=== PATIENT | male | born 1995 | race Two or more races ===

== ENCOUNTER → 2023-12-16 | Emergency (ER) | payer SELFPAY ==
[~2023-12-16] MED LIST: ASPIRIN 81 MG CHEWABLE TABLET ONE; ATROPINE SULF 1 MG/10 ML SYR IV ONE; CLOPIDOGREL 75 MG TABLET ONE; FENTANYL CITR 100 MCG/2 ML ONE; HEPA 1000U/500MLS 0 UNIT/0 ML BAG IV ONE; HEPARIN 10,000 UNIT/10 ML VIAL IV ONE; HEPARIN 5000 UNIT/ML 1 ML VIAL ONE; HEPARIN/D5W 0 UNIT/0 ML BAG IV ONE; LIDOCAINE 1% 20 ML MDV ONE; MIDAZOLAM HCL 2 MG/2 ML INJ ONE; NA CHLORIDE 0.9% 0 ML ONE; NITROGLYCERIN/D5W 50 MG/250 ML BTL IV ONE; TICAGRELOR 90 MG TABLET PO ONE
[2023-12-16 11:24] LABS: Absolute Eosinophils 0.1 K/uL (0-0.5); Absolute Lymphocytes (CBC) 1.9 K/uL (0.7-4.9); Absolute Neutrophil 6.5 K/uL (1.8-8.0); Basophils % 0.3 % (0-1.3); Eosinophils % 1.6 % (0-4.4); Hematocrit 51.8 % (39.6-49.0); Hemoglobin 17.4 g/dL (13.6-17.9); Lymphocytes % 19.7 % (15.3-44.8); MCH 29.9 pg (27.0-35.0); MCHC 33.7 g/dL (32.0-36.0); MCV 88.9 fL (80-100); MPV 9.6 fL (7.6-11.3); Monocytes % 10.2 % (3.3-12.3); Neutrophils % 68.2 % (41.7-73.7); Nucleated Red Blood Cells % 0.1 % (0-0); Platelets 356 thou/uL (152-406); RBC Red Blood Cell Count 5.83 M/uL (4.33-5.43); Red Cell Distribution Width 12.9 % (12.1-15.2)
--- NOTE | 2023-12-16 11:29 | ER ---
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 Coronavirus screen: At this time, the client does not indicate any symptoms associated with coronavirus-19. Ebola Screen: No symptoms or risks identified at this time. Initial Sepsis Screen: Does the patient meet any 2 criteria? No. Patient's initial sepsis screen is negative. Does the patient have a suspected source of infection? No. Patient's initial sepsis screen is negative. Risk Assessment: Do you want to hurt yourself or someone else? Patient reports no desire to harm self or others. Onset of symptoms was December 15, 2023. 10:59 Method Of Arrival: Ambulatory hb 10:59 Acuity: SAURABH 3 hb Historical: - Allergies: 11:01 No Known Allergies; hb - Home Meds: 11: None [Active]; hb - PMHx: 11:01 Asthma; hb - PSHx: 11:01 None; hb - Immunization history:: Adult Immunizations up to date. - Infectious Disease History:: Denies. - Social history:: Smoking status: Patient reports the use of cigarette tobacco products, denies chronic smoking, but will smoke occasionally. Screenin:[address] [facility] ED Fall Risk Assessment (Adult) History of falling in the last 3 months, iw including since admission No falls in past 3 months (0 pts) Confusion or Disorientation No (0 pts) Intoxicated or Sedated No (0 pts) Impaired Gait No (0 pts) Mobility Assist Device Used No (0 pt) Altered Elimination No (0 pt) Score/Fall Risk Level 0 - 2 = Low Risk Oriented to surroundings, Maintained a safe environment. Abuse screen: Denies threats or abuse. Nutritional screening: No deficits noted. Tuberculosis screening: No symptoms or risk factors identified. Assessment: 11:21 General: Appears in no apparent distress. Behavior is calm, cooperative. Pain: iw Complains of pain in chest Pain does not radiate. Pain currently is 8 out of 10 on a pain scale. Pain began 1 day ago. Is continuous. Neuro: Level of Consciousness is awake, alert, obeys commands, Oriented to person, place, time, situation, Moves all extremities. Full function. Cardiovascular: Patient's skin is warm and dry. Respiratory: Respiratory effort is even, unlabored, Respiratory pattern is regular, symmetrical. Derm: Skin is intact, is healthy with good turgor. Musculoskeletal: Capillary refill < 3 seconds. 11:25 Reassessment: catheterization laboratory technician RN at bedside , will hold heparin. iw Vital Signs: 10:59 BP 143 / 103; Pulse 87; Resp 16; Temp 97.8(TE); Pulse Ox 100% on R/A; Weight 72.57 kg; hb Height 5 ft. 5 in. ; Pain 5/10; 11:25 BP 139 / 101; Pulse 84; Resp 16; Pulse Ox 99% on R/A; Pain 8/10; iw 10:59 Body Mass Index 26.63 (72.57 kg, 165.1 cm) hb 10:59 Pain Scale: Adult hb 11:25 Pain Scale: Adult iw ED Course: 10:52 Patient arrived in ED. mg5 10:54 Guillermo Sumner DO is Attending Physician. ms3 11:01 Triage completed. hb 11:01 Arm band placed on. hb 11:04 Carrie Amos, RN is Primary Nurse. iw 11:16 Initial lab(s) drawn, by me, sent to lab. Inserted saline lock: 18 gauge in right iw antecubital area, using aseptic technique. Blood collected. Flushed with 10 mL NS. 11:20 Inserted saline lock: 18 gauge in left antecubital area, using aseptic technique. ss 11:25 Patient has correct armband on for positive identification. Placed in gown. Provided iw Education on: need for catheterization laboratory technician. 11:27 Kvng Caraballo MD is Hospitalizing Provider. ms3 11:30 No provider procedures requiring assistance completed. Patient admitted, IV remains in iw place. Administered Medications: 11:20 Drug: Aspirin PO Chewable Tablet 324 mg PO once; 81 mg tablets x 4 Route: PO; iw 11:31 Follow up: Response: No adverse reaction; Medication Administered at Departure iw 11:23 Drug: Brilinta 180 mg PO once Route: PO; 11:30 Follow up: Response: Medication Administered at Departure iw 11: Not Given (pt to cath labb): Heparin (LA-Bolus No thrombolytic) - [id number] units/kg iw IVP once; Max 5000 units Medication: 11:30 VIS not applicable for this client. iw Outcome: : Decision to Hospitalize by Provider. ms3 11:29 Admitted to Optical Technician accompanied by nurse, via stretcher, on monitor, with chart, iw : Condition: stable :29 Instructed on the need for admit, Demonstrated understanding of instructions, : Patient left the ED. iw Signatures: Carrie Amos, RN RN Clementina Duron RN RN Malu Hammond, RN RN Guillermo Sumner, DO ms3 Rose Lombardo mg5
--- NOTE | 2023-12-16 11:29 | EDPHYS ---
Physician Documentation [facility] Name: Andrae Alan Age: 28 yrs Sex: Male : 1995 Arrival Date: 12/16/2023 Time: 10:46 Bed 7 Private MD: ED Physician Guillermo Sumner HPI: 12/15 11:04 This 28 yrs old [place] Male presents to ER via Ambulatory with complaints of Heat ms3 Exposure. 11:04 28-year-old male with past medical history of asthma presents to the emergency ms3 department for lightheadedness, chest pain, body cramps, nausea, vomiting. Patient states he has had chest pain that is throbbing since yesterday. 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 He denies any alleviating or inciting factors. Historical: - Allergies: 11: No Known Allergies; hb - Home Meds: 11: None [Active]; hb - PMHx: 11: Asthma; hb - PSHx: 11:01 None; hb - Immunization history:: Adult Immunizations up to date. - Infectious Disease History:: Denies. - Social history:: Smoking status: Patient reports the use of cigarette tobacco products, denies chronic smoking, but will smoke occasionally. ROS: 11:04 Constitutional: Negative for fever, and chills. Neck: Negative for injury, pain, and ms3 swelling, Respiratory: Negative for shortness of breath, cough, wheezing, and pleuritic chest pain, 11:04 Abdomen/GI: Negative for abdominal pain, nausea, vomiting, diarrhea, and constipation, MS/Extremity: Negative for injury and deformity, Skin: Negative for injury, rash, and discoloration, 11:04 Cardiovascular: Positive for chest pain, Exam: 11:04 Constitutional: This is a well developed, well nourished patient who is awake, alert, ms3 and in no acute distress. Head/Face: Normocephalic, atraumatic. Chest/axilla: Normal chest wall appearance and motion. Nontender with no deformity. Cardiovascular: Regular rate and rhythm with a normal S1 and S2. No gallops, murmurs, or rubs. Normal PMI, no JVD. No pulse deficits. Respiratory: Lungs have equal breath sounds bilaterally, clear to auscultation and percussion. No rales, rhonchi or wheezes noted. No increased work of breathing, no retractions or nasal flaring. Abdomen/GI: Soft, non-tender, with normal bowel sounds. No distension or tympany. No guarding or rebound. No evidence of tenderness throughout. Skin: Warm, dry with normal turgor. Normal color with no rashes, no lesions, and no evidence of cellulitis. MS/ Extremity: Pulses equal, no cyanosis. Neurovascular intact. Full, normal range of motion. 11:22 ECG was reviewed by the Attending Physician. ms3 Vital Signs: 10:59 BP 143 / 103; Pulse 87; Resp 16; Temp 97.8(TE); Pulse Ox 100% on R/A; Weight 72.57 kg; hb Height 5 ft. 5 in. ; Pain 5/10; 11:25 BP 139 / 101; Pulse 84; Resp 16; Pulse Ox 99% on R/A; Pain 8/10; iw 10:59 Body Mass Index 26.63 (72.57 kg, 165.1 cm) hb 10:59 Pain Scale: Adult hb 11:25 Pain Scale: Adult iw MDM: 11:01 Patient medically screened. ms3 11:04 Differential Diagnosis PA vs Heat Exhaustion vs Rhabdo. ms3 11:18 ED course: Discussed case with Dr Manzo and he would like patient to go to catheterization laboratory technician. ms3 11:22 Data reviewed: vital signs, nurses notes, EKG, and as a result, I will admit patient. ms3 Consideration of Admission/Observation Patient was admitted/placed on observation. Management of patient was discussed with the following: Hospitalist: OBI Hill with Dr Caraballo. Vice President Corporate Communications: Discussed case with Dr Manzo. He would like 180 mg Brilinta, Heparin Bolus and 324 mg ASA. . I considered the following discharge prescriptions or medication management in the emergency department Medications were administered in the Emergency Department. See MAR. Independent interpretation of the following test(s) in the Emergency Department EKG: See my EKG interpretation above. Counseling: I had a detailed discussion with the patient and/or guardian regarding the historical points, exam findings, and any diagnostic results supporting the discharge/admit diagnosis, the need for further work-up and treatment in the hospital. 12:40 ED course: Called patient because he left AMA from the catheterization laboratory technician. Informed patient of ms3 BRANT and recommended hospitalization with patient. Recommended oral hydration to patient with electrolyte containing substances as well as water. Patient declines and states he will go to [place].. 12/15 11:02 Order name: Basic Metabolic Panel; Complete Time: 12:36 ms3 12/15 11:02 Order name: CBC with Diff; Complete Time: 11:35 ms3 12/15 11:02 Order name: Troponin HS; Complete Time: 12:36 ms3 12/15 11:02 Order name: CK; Complete Time: 12:36 ms3 12/15 11:19 Order name: UDS sp3 10 11:20 Order name: PT-INR; Complete Time: 12:36 ss 12/15 11:20 Order name: Ptt, Activated; Complete Time: 12:36 ss 12/15 11:02 Order name: Cardiac monitoring; Complete Time: 11:10 ms3 12/15 11:02 Order name: EKG - Nurse/Tech; Complete Time: 11:10 ms3 12/15 11:02 Order name: IV Saline Lock; Complete Time: 11:16 ms3 12/15 11:02 Order name: Labs collected and sent; Complete Time: 11:19 ms3 12/15 11:02 Order name: O2 Per Protocol; Complete Time: 11:16 ms3 12/15 11:02 Order name: O2 Sat Monitoring; Complete Time: 11:16 ms3 EC:22 Rate is 83 beats/min. Rhythm is regular. QRS [place] is Normal. CA interval is normal. QRS ms3 interval is normal. QT interval is normal. ST Segment is elevated in leads V1, V2, V3. Clinical impression: Septal PA - acute. Interpreted by me. Reviewed by me. Administered Medications: 11:20 Drug: Aspirin PO Chewable Tablet 324 mg PO once; 81 mg tablets x 4 Route: PO; iw 11:31 Follow up: Response: No adverse reaction; Medication Administered at Departure iw 11:23 Drug: Brilinta 180 mg PO once Route: PO; ss 11:30 Follow up: Response: Medication Administered at Departure iw 11:26 Not Given (pt to cath labb): Heparin ([place]-Bolus No thrombolytic) - [id number] units/kg iw IVP once; Max 5000 units Disposition Summary: 10/08/24 11:29 Hospitalization Ordered Notes: Hospitalization Status: Inpatient Admission ms3 Provider: Kvng Caraballo ms3 Location: Telemetry/MedSurg (Inpatient) ms3 Condition: Stable ms3 Problem: new ms3 Symptoms: are unchanged ms3 Bed/Room Type: Standard ms3 Room Assignment: ms3 Diagnosis - Chest pain, unspecified ms3 - Lightheaded ms3 - Elevated blood-pressure reading, without diagnosis of hypertension ms3 - ST elevation (STEMI) myocardial infarction involving other coronary artery of ms3 inferior wall Discharge Instructions: - Discharge Summary Sheet bd Forms: - SBAR form bd - Medication Reconciliation Form ms3 - Leadership Thank You Letter ms3 Signatures: Dispatcher [employer] EDCarrie Mariscal RN RN iw Clementina Duron RN RN ss Baxter, Heather, RN RN hb Sims, Marcus, DO DO ms3 Corrections: (The following items were deleted from the chart) 11:02 11:02 Chest Single View+RAD.RAD.BRZ ordered. EDMS EDMS 11:03 11:03 Hand Right 3 View+RAD.RAD.BRZ ordered. EDMS EDMS 11:20 11:20 PROTIME (+INR)+COAG.LAB.BRZ ordered. EDMS EDMS 11:20 11:20 PTT, ACTIVATED+COAG.LAB.BRZ ordered. EDMS EDMS
[2023-12-16 11:38] LABS: PT Prothrombin Time 12.6 SECONDS (9.4-12.5); PTT, Activated Partial Thromb 30.6 SECONDS (24.3-36.9); Protime INR 1.13
[2023-12-16 11:40] LABS: Anion Gap 12.4 mEq/L (5.0-15.0); Potassium 3.4 mEq/L (3.5-5.1); Troponin High Sensitivity 8.5 pg/mL (<58.9)
[2023-12-16 11:59] VITALS: TEMP 97.8
[2023-12-16 12:00] VITALS: BP 139/101; O2SAT 99
--- NOTE | 2023-12-16 17:49 | P.CNS ---
Date of Consult: 12/16/23 Called at 1115 and asked to admit this patient for a STEMI. I went down to see the patient and understood that he was taken to the medical lab assistant. EKG in ED showed hyperacute T waves with some ST elevation in lead V1-V3. I again went to admit Mr. Alan but was told he left AMA between the ED and the medical lab assistant. I never saw the patient.
--- NOTE | 2023-12-18 17:00 | EKG ---
Test Date: 2023-12-16 Test Time: 11:04:31 Hand Bulldozer: CYNTHIA MEASUREMENT RESULTS: Intervals: Rate: 83 CO: 144 QRSD: 94 QT: 366 QTc: 430 [employer]: P: 73 CO: 144 QRS: 39 T: 53 INTERPRETIVE STATEMENTS: Normal sinus rhythm ST elevation, consider anterior injury or acute infarct Abnormal ECG Electronically Signed On 12-18-23 16:52:31 CDT by Eric Rebolledo
--- NOTE | 2023-12-18 17:00 | EKG ---
Test Date: 2023-12-16 Test Time: 11:07:42 Liquor Blender: CYNTHIA MEASUREMENT RESULTS: Intervals: Rate: 75 VA: 144 QRSD: 92 QT: 364 QTc: 406 [place]: P: 75 VA: 144 QRS: 40 T: 53 INTERPRETIVE STATEMENTS: Normal sinus rhythm ST elevation, consider anterior injury or acute infarct ACUTE OK / STEMI Abnormal ECG Compared to ECG 12/16/2023 11:04:31 No significant changes Electronically Signed On 12-18-23 16:52:15 CDT by Eric Rebolledo
== END ==
LOC: ER 10:46
DX: I21.19 ST elevation (STEMI) myocardial infarction involving other coronary artery of inferior wall (principal); R42 Dizziness and giddiness; R03.0 Elevated blood-pressure reading, without diagnosis of hypertension; F17.210 Nicotine dependence, cigarettes, uncomplicated
CPT/HCPCS: 36415; 80048; 82550; 84484; 85025; 85610; 85730; 93005; 99285; J0461; J1644; J2001; J2250; J3010; J7040